=== PATIENT | male | born 1975 | race Caucasian/White ===

== ENCOUNTER 2016-08-22 20:05 | Emergency (ER) | payer SELFPAY | END 2016-08-22 20:30 | disposition left against medical advice (07) | LOC: D.ER 20:05 | DX: Z02.9 Encounter for administrative examinations, unspecified (principal) ==

== ENCOUNTER 2017-03-12 19:47 | Emergency (ER) | payer OTHER ==
[2017-03-12 20:33] LABS: BASOPHILS 0.3 % (0-2); EOSINOPHILS 1.1 % (0-7); HEMATOCRIT 44.4 % (42.0-54.0); HEMOGLOBIN 16.1 g/dL (13.5-17.5); IMMATURE GRANULOCYTES 0.2 % (0-5); LYMPHOCYTES 34.9 % (15-50); MCH 33.3 pg (26.0-34.0); MCHC 36.3 g/dL (31.0-37.0); MCV 91.7 fL (80.0-100.0); MEAN PLATELET VOLUME 10.7 fL (7.4-10.4); MONOCYTES 11.3 % (2-11); NEUTROPHILS 52.2 % (40-80); PLATELET COUNT 197 10x3/uL (130-400); RBC 4.84 10x6/uL (4.20-6.10); RDW 12.2 % (11.5-14.5); WBC 6.2 10x3/uL (4.8-10.8)
[2017-03-12 21:57] LABS: ALBUMIN 3.5 g/dL (3.4-5.0); ALKALINE PHOSPHATASE 68 U/L (46-116); ALT (SGPT) 30 U/L (10-68); CALC OSMOLALITY 271 mosm/kg (275-300); CALCIUM 8.7 mg/dL (8.5-10.1); CARBON DIOXIDE 29.1 mmol/L (21.0-32.0); CHLORIDE - SERUM 101 mmol/L (98-107); CREATININE - SERUM 0.9 mg/dL (0.6-1.3); GLUCOSE 78 mg/dL (74-106); POTASSIUM - SERUM 3.8 mmol/L (3.5-5.1); PROTEIN - SERUM 6.6 g/dL (6.4-8.2); SODIUM 136 mmol/L (136-145); UREA NITROGEN 16 mg/dL (7-18); eGFR NON AFRICAN AMERICAN > 90 mL/min (90-120)
== END 2017-03-13 00:55 | disposition home or self-care (01) ==
LOC: D.ER 19:47
PROVIDERS: Family Medicine; Physician Assistant
DX: K52.9 Noninfective gastroenteritis and colitis, unspecified (principal)

== ENCOUNTER 2017-04-13 15:49 | Emergency (ER) | payer OTHER ==
[2017-07-08] MEDS ORDERED: MOBIC7.5 MG PO (11:48)
[2017-07-08] MEDS ORDERED: CYCLOBENZAPRINE10 MG PO (11:49)
[2017-07-09 07:07] VITALS: BMI 27.0
== END 2017-04-13 18:42 | disposition home or self-care (01) ==
LOC: D.ER 15:49
DX: M62.838 Other muscle spasm (principal); S16.1XXA Strain of muscle, fascia and tendon at neck level, initial encounter; X58.XXXA Exposure to other specified factors, initial encounter; Y93.89 Activity, other specified; Y92.029 Unspecified place in mobile home as the place of occurrence of the external cause

== ENCOUNTER 2017-07-09 05:32 | Day surgery (SDC) | payer OTHER ==
[2017-07-08 12:36] LABS: CALC OSMOLALITY 279 mosm/kg (275-300); CALCIUM 9.1 mg/dL (8.5-10.1); CARBON DIOXIDE 27.3 mmol/L (21.0-32.0); CHLORIDE - SERUM 105 mmol/L (98-107); CREATININE - SERUM 0.9 mg/dL (0.6-1.3); GLUCOSE 91 mg/dL (74-106); POTASSIUM - SERUM 4.4 mmol/L (3.5-5.1); SODIUM 140 mmol/L (136-145); UREA NITROGEN 15 mg/dL (7-18); eGFR NON AFRICAN AMERICAN > 90 mL/min (90-120)
[2017-07-08 12:54] LABS: HEMOGLOBIN 15.6 g/dL (13.5-17.5); LYMPHOCYTES 36.4 % (15-50); MCH 33.3 pg (26.0-34.0); MCHC 36.3 g/dL (31.0-37.0); MCV 91.9 fL (80.0-100.0); MEAN PLATELET VOLUME 10.1 fL (7.4-10.4); NEUTROPHILS 56.2 % (40-80); PLATELET COUNT 202 10x3/uL (130-400); RBC 4.68 10x6/uL (4.20-6.10); RDW 12.8 % (11.5-14.5); WBC 7.8 10x3/uL (4.8-10.8)
[~2017-07-09] VITALS: Ht 182.9 cm; Wt 90.3 kg
--- NOTE | ~2017-07-09 | OP ---
PATIENT NAME: DONNA SUAREZ MEDICAL RECORD: [id number] :73 LOCATION:D.OPS ADMISSION DATE: SURGEON: FELICIANO THOMAS MD DATE OF OPERATION: 07/09/2017 DATE OF OPERATION: 07/09/2017 PREOPERATIVE DIAGNOSES: 1. Right inguinal hernia. 2. Umbilical hernia. 3. Arthritis. POSTOPERATIVE DIAGNOSES: 1. Right inguinal hernia. 2. Umbilical hernia. 3. Arthritis. PROCEDURE: 1. Umbilical hernia repair with 4.3 cm Proceed mesh. 2. Right inguinal hernia repair with medium PHS mesh. SURGEON: Feliciano Thomas MD REPORT OF PROCEDURE: The patient's abdomen was prepped and draped in sterile fashion. A semicircular incision was made on the inferior aspect of the umbilicus. Electrocautery was used to dissect through the subcutaneous tissues and the umbilical stalk. The hernia sac was transected and removed down to the fascial edges. The fascial defect was right at 2 cm in greatest diameter. We freed up the top and bottom surface of the fascia and inserted a 4.3 cm Proceed mesh. This was sutured on all 4 sides using interrupted 0 Prolenes. We then closed the fascia transversely using running 0 Vicryl. We irrigated out the wound with normal saline and assured there was no bleeding. The umbilicus was then tacked down with interrupted 3-0 Vicryl and the subcutaneous tissues were reapproximated with interrupted 3-0 Vicryls. The skin was closed with running subcutaneous 5-0 Monocryl and the wound was dressed appropriately. The right groin was then approached. An oblique incision was made above the inguinal ligament. Electrocautery was used to dissect through the subcutaneous tissues until we encountered the external oblique fascia. This fascia was opened up to the external ring using electrocautery. The patient had some bleeding from a small artery. This was high ligated with a 3-0 silk tie. We found the ilioinguinal nerve and this was high ligated. A [place] was then placed around the spermatic cord. The patient had a direct hernia defect which included good bit of the inguinal floor. We freed up the edges of this defect and opened up the preperitoneal space of Retzius. A medium PHS mesh was inserted and sutured down on all 4 sides using multiple interrupted 0 Vicryls. The wound was then irrigated out with normal saline. The external oblique fascia was closed with running 2-0 Vicryl. Fawn's was closed with interrupted 3-0 Vicryl and the skin was closed with running subcutaneous 5-0 Monocryl. A total of 15 mL of 0.25% Marcaine plain was infused into the surrounding tissues and the wounds were all dressed appropriately. COMPLICATIONS: None. CONDITION: Stable. OPERATIVE REPORT [id number] DONNA SUAREZ ANESTHESIA: General endotracheal and local. BLOOD LOSS: 30 mL. TRANSINT:[id number] Voice Confirmation ID: [id number] DOCUMENT ID: [id number] FELICIANO THOMAS MD at 1123 CC: SUSAN ARROYO DO [id number] DICTATION DATE: 07/09/17 1045 [facility]Y GROWER: 07/09/17 1250 [facility] 07/09/17 [facility] [address] [place] [address]
[~2017-07-09 05:32] MED LIST: CYCLOBENZAPRINE10 MG PO; MOBIC7.5 MG PO
[2017-07-09 07:07] VITALS: BP 104/64; Ht 182.9 cm; Wt 90.3 kg
[2017-07-09] MEDS ORDERED: HYDROCODONE-APA1 TAB PO (10:40)
== END 2017-07-09 16:30 | disposition home or self-care (01) ==
LOC: D.OPS 05:32
PROVIDERS: Surgery
DX: K40.90 Unilateral inguinal hernia, without obstruction or gangrene, not specified as recurrent (principal); K42.9 Umbilical hernia without obstruction or gangrene; M19.91 Primary osteoarthritis, unspecified site; Z01.812 Encounter for preprocedural laboratory examination

== ENCOUNTER 2017-10-15 16:31 | Emergency (ER) | payer OTHER ==
[2017-07-09 07:07] VITALS: BMI 27.0
[~2017-10-15 16:31] MED LIST changes: +HYDROCODONE-APA1 TAB PO
== END 2017-10-15 18:15 | disposition home or self-care (01) ==
LOC: D.ER 16:31
DX: S39.012A Strain of muscle, fascia and tendon of lower back, initial encounter (principal); X50.1XXA Overexertion from prolonged static or awkward postures, initial encounter; Y93.9 Activity, unspecified; Y92.9 Unspecified place or not applicable; M54.31 Sciatica, right side

== ENCOUNTER 2018-09-02 21:08 | Emergency (ER) | payer OTHER ==
[~2018-09-02] VITALS: Ht 182.9 cm; Wt 88.2 kg
[2018-09-02 21:20] VITALS: Ht 182.9 cm; Wt 88.2 kg
[2018-09-02] MEDS ORDERED: HYDROCODON-ACE1 EAC2 PO (23:23)
[2018-09-02 23:37] VITALS: BP 136/90
== END 2018-09-02 23:37 | disposition home or self-care (01) ==
LOC: D.ER 21:08
DX: S61.011A Laceration without foreign body of right thumb without damage to nail, initial encounter (principal); W45.8XXA Other foreign body or object entering through skin, initial encounter; Y93.89 Activity, other specified; Y92.89 Other specified places as the place of occurrence of the external cause

== ENCOUNTER → 2018-09-29 23:14 | Emergency (ER) | payer OTHER ==
[~2018-09-29] VITALS: Ht 182.9 cm; Wt 83.6 kg
[~2018-09-29 23:14] MED LIST changes: +HYDROCODON-ACE1 EAC2 PO
[2018-09-29 23:24] VITALS: BP 136/82; Ht 182.9 cm; Wt 83.6 kg
== END | disposition left against medical advice (07) ==
LOC: D.ER 23:14
DX: K08.89 Other specified disorders of teeth and supporting structures (principal)

== ENCOUNTER → 2018-11-11 15:57 | Outpatient (CLI) | payer OTHER ==
[2018-09-29 23:24] VITALS: BMI 25.0
== END | disposition home or self-care (01) ==
LOC: D.RAD 15:57
DX: R11.0 Nausea (principal)

== ENCOUNTER 2019-08-20 20:17 | Emergency (ER) | payer OTHER ==
[~2019-08-20] VITALS: Ht 182.9 cm; Wt 79.5 kg
[2019-08-20 20:24] VITALS: Ht 182.9 cm; Wt 79.5 kg
[2019-08-20] MEDS ORDERED: TYLENOL #4 W/CO1 TAB PO (21:02)
[2019-08-20] MEDS ORDERED: CYCLOBENZAPRINE10 MG PO (21:02)
[2019-08-20 21:12] VITALS: BP 137/93
== END 2019-08-20 21:12 | disposition home or self-care (01) ==
LOC: D.ER 20:17
DX: G44.209 Tension-type headache, unspecified, not intractable (principal)

== ENCOUNTER → 2019-11-02 14:37 | Outpatient (CLI) | payer OTHER ==
[2019-08-20 20:24] VITALS: BMI 23.8
[~2019-11-02 14:37] MED LIST changes: +TYLENOL #4 W/CO1 TAB PO
== END | disposition home or self-care (01) ==
LOC: D.US 10-30 15:00
PROVIDERS: ATTEND Surgery
DX: R10.30 Lower abdominal pain, unspecified (principal)

== ENCOUNTER 2020-03-13 20:55 | Emergency (ER) | payer OTHER ==
[~2020-03-13] VITALS: Ht 182.9 cm; Wt 79.5 kg
[2020-03-13 21:14] VITALS: Ht 182.9 cm; Wt 79.5 kg
[2020-03-13] MEDS ORDERED: NAPROSYN500 MG PO (21:18)
[2020-03-13 22:44] LABS: BASOPHILS 0.5 % (0-2); EOSINOPHILS 1.4 % (0-7); HEMATOCRIT 43.6 % (42.0-54.0); IMMATURE GRANULOCYTES 0.3 % (0-5); LYMPHOCYTES 38.4 % (15-50); MCH 32.8 pg (26.0-34.0); MCHC 34.4 g/dL (31.0-37.0); MCV 95.2 fL (80.0-100.0); MEAN PLATELET VOLUME 10.2 fL (7.4-10.4); MONOCYTES 5.6 % (2-11); NEUTROPHILS 53.8 % (40-80); RBC 4.58 10x6/uL (4.20-6.10); RDW 12.7 % (11.5-14.5)
[2020-03-13 22:46] LABS: PLATELET COUNT 250 10x3/uL (130-400)
[2020-03-13 22:53] LABS: ANION GAP 8.5 mmol/L (8-16); CALCIUM 8.8 mg/dL (8.5-10.1); CARBON DIOXIDE 30.9 mmol/L (21.0-32.0); CREATININE - SERUM 1.3 mg/dL (0.6-1.3); POTASSIUM - SERUM 4.4 mmol/L (3.5-5.1)
[2020-03-13 22:58] LABS: ALBUMIN 3.8 g/dL (3.4-5.0); BILIRUBIN - TOTAL 0.25 mg/dL (0.2-1.3); PROTEIN - SERUM 6.7 g/dL (6.4-8.2)
[2020-03-13 23:21] LABS: BILIRUBIN NEGATIVE (NEGATIVE); KETONE NEGATIVE (NEGATIVE); NITRITE NEGATIVE (NEGATIVE); UROBILINOGEN NORMAL mg/dL (< 2)
[2020-03-13 23:23] LABS: AMORPHOUS SEDIMENT <1+ LPF (NONE SEEN); BACTERIA FEW HPF (NONE SEEN); EPITHELIAL CELLS 0-5 /hpf (0-5); WHITE CELLS - URINE 0-5 HPF (0-1)
[2020-03-14] MEDS ORDERED: VOLTAREN75 MG PO (02:01)
[2020-03-14 02:17] VITALS: BP 120/80
== END 2020-03-14 02:20 | disposition home or self-care (01) ==
LOC: D.ER 20:55
PROVIDERS: Family Medicine
DX: R10.31 Right lower quadrant pain (principal); K40.90 Unilateral inguinal hernia, without obstruction or gangrene, not specified as recurrent